=== PATIENT | male | born 1975 | race Caucasian/White ===

== ENCOUNTER 2019-04-14 14:35 | Emergency (ER) | payer SELFPAY ==
[~2019-04-14] VITALS: Ht 182.9 cm; Wt 81.6 kg
[~2019-04-14 14:35] MED LIST: FINA5TAB3 PO; VILA20TA PO
--- NOTE | 2019-04-14 14:42 | NUR ---
PT AMBULATORY TO ER BED 02 C/O NOTICING BLOOD W/ BOWEL MOVEMENT. BEEN GOING ON X 3 DAYS. DENIES ABDOMINAL PAIN, NAUSEA AND VOMITING. DESCRIBE IT BRIGHT RED. WORSENING.
--- NOTE | 2019-04-14 15:21 | NUR ---
DR GILBERT AT BEDSIDE FOR EVAL.
[2019-04-14] MEDS ORDERED: PANTOPRAZOLE 40 MG VIAL IV ONE (15:30)
[2019-04-14] MEDS ORDERED: IV NS 0.9% 500 ML BAG IV ONE (15:30)
--- NOTE | 2019-04-14 15:38 | NUR ---
IV LINE STARTED. BLOOD DRAWN AND SENT TO LAB.
[2019-04-14 15:47] LABS: BASOPHILS # (AUTO) 0.1 /CMM (0.0-0.2); BASOPHILS % (AUTO) 0.8 % (0.0-2.0); EOSINOPHILS % (AUTO) 0.8 % (0.0-6.0); HEMATOCRIT 44 % (39-51); HEMOGLOBIN 14.5 g/dL (13.5-17.5); LYMPHOCYTES # (AUTO) 2.1 /CMM (0.8-4.8); LYMPHOCYTES % (AUTO) 33.9 % (20.0-44.0); MEAN CORPUSCULAR HGB CONC 33 g/dl (31.0-36.0); MEAN CORPUSCULAR VOLUME 86 fL (80-96); MONOCYTES # (AUTO) 0.6 /CMM (0.1-1.30); MONOCYTES % (AUTO) 9.7 % (2.0-12.0); NEUTROPHILS # (AUTO) 3.4 /CMM (1.8-8.9); NEUTROPHILS % (AUTO) 54.8 % (43.0-81.0); PLATELET COUNT (AUTO) 286 /CMM (150-450); RED BLOOD CELL COUNT(AUTO) 5.09 MIL/uL (4.5-6.0); WHITE BLOOD COUNT (AUTO) 6.2 K/uL (4.3-11.0)
[2019-04-14] MEDS ORDERED: PANTOPRAZOLE 40 MG VIAL ONE (15:50)
[2019-04-14 16:00] LABS: CALCIUM, SERUM 9.2 mg/dL (8.5-10.1); CREATININE 0.9 mg/dL (0.6-1.3); POTASSIUM 3.9 mmol/L (3.5-5.1)
[2019-04-14 17:39] VITALS: BP 139/86
--- NOTE | 2019-04-14 17:39 | NUR ---
Patient discharged to home in stable condition. Written and verbal after care instructions given. Patient verbalizes understanding of instruction.IV removed. Catheter intact and site benign. Pressure and 4x4 applied to site. No bleeding noted.
== END 2019-04-14 17:40 | disposition home or self-care (01) ==
LOC: ER 14:41
DX: K62.5 Hemorrhage of anus and rectum (principal); J45.909 Unspecified asthma, uncomplicated; F10.10 Alcohol abuse, uncomplicated; Y90.9 Presence of alcohol in blood, level not specified; Z79.899 Other long term (current) drug therapy
CPT/HCPCS: 36415; 80048; 85025; 85730; 96374; 99283; C9113; J7040